=== PATIENT | female | born 1965 | race Caucasian/White ===

== ENCOUNTER → 2017-04-04 | Outpatient (CLI) | payer OTHER ==
[~2017-04-04] MED LIST: LORTAB 2.5/5001 TAB PO
--- NOTE | ~2017-04-04 | CT5 ---
[facility] A Service of [facility] & [facility] RADIOLOGY TEXT RESULTS PATIENT: DOMINGO KELLOGG LOCATION: [facility]AT : 65 UNIT #: [id number] AGE: [address]: Berta Scott MD SEX: F ORDER DR: [id number] [facility] [address] [place], [place] [address] [id number] O MR#: [id number] Acc #: [id number] NAME: DOMINGO KELLOGG : 1965 SEX: F STUDY DATE/TIME: 04/04/2017 12:49 UNIT: [facility]AT ROOM: STUDY DESCRIPTION: CT Abdomen W Cont Attending Physician: Berta Scott M.D., Ph.D. Referring Physician: Berta Scott M.D., Ph.D. Ordering Physician: Berta Scott M.D., Ph.D. Primary Care Physician: Osmin Ritchie M.D. MEDICAL IMAGING REPORT This report is preliminary unless electronic signature is present EXAM Abdomen CT with contrast, 04/04/2017 INDICATIONS 52-year-old female with history of lung cancer diagnosed in December of this year. Status post chemotherapy and radiation therapy. Hypertension. TECHNIQUE Contrast enhanced CT of the abdomen was performed and compared with 12/14/2016. This CT exam was performed with one or more of the following radiation dose reduction techniques: automatic exposure control, adjustment of mA and/or kV according to patient size, and iterative reconstruction. FINDINGS CT ABDOMEN: Please see separately dictated CT chest same date for further details regarding chest findings. There is no pleural effusion or evidence of pneumonia. Probable areas of linear atelectasis in the lower lobes, lingula and right middle lobe. Aorta demonstrates no aneurysm or dissection. Circumaortic left renal vein present. The spleen and right adrenal gland are unremarkable. There is redemonstration of nodular thickening of the medial limb left adrenal gland measuring up to 19 mm x 15 mm, previously 22 mm x 20 mm. The appearance is unchanged. The pancreas and gallbladder are unremarkable. There is a stable cyst in the left hepatic lobe. Adjacent tiny probable cyst in segment 2 of the liver, also unchanged but too small to definitively characterize. Probable vascular shunt in the right hepatic lobe, unchanged. Kidneys demonstrate incidental renal cysts and are otherwise unremarkable. No new adenopathy or fluid collection. The bowel is unremarkable. Visualized appendix unremarkable. No new suspicious bone lesion. Degenerative change in the lower lumbar spine. [facility]. [facility] A Service of [facility] RADIOLOGY TEXT RESULTS PATIENT: DOMINGO KELLOGG LOCATION: [facility] : 65 UNIT #: [id number] AGE: [address]: Berta Scott MD SEX: F ORDER DR: IMPRESSION 1. Nodularity of the left adrenal gland is unchanged. This may reflect adrenal hyperplasia or a lipid-poor adenoma. Metastatic disease remains within the differential but is felt to be less likely given relative stability. Attention on followup is recommended. 2. Incidental hepatic and renal cysts, unchanged. 3. No new suspicious bone lesion. Dictated by... Yohannes Martin M.D. THIS IS AN ELECTRONICALLY VERIFIED REPORT Yohannes Martin M.D. at 04/05/2017 9:13 AM UMER/storm TD: 04/04/2017 20:28 JOB #: [id number] MEDICAL IMAGING REPORT Page 1 of 1 COPY
--- NOTE | ~2017-04-04 | CT55 ---
[facility] A Service of [facility] & [facility] RADIOLOGY TEXT RESULTS PATIENT: DOMINGO KELLOGG LOCATION: [facility] : 65 UNIT #: [id number] AGE: [address]: Berta Scott MD SEX: F ORDER DR: [id number] [facility] [address] [place], [place] [address] [id number] O MR#: [id number] Acc #: [id number] NAME: DOMINGO KELLOGG : 1965 SEX: F STUDY DATE/TIME: 04/04/2017 12:49 UNIT: [facility]AT ROOM: STUDY DESCRIPTION: CT Chest W Con Attending Physician: Berta Scott M.D., Ph.D. Referring Physician: Berta Scott M.D., Ph.D. Ordering Physician: Berta Scott M.D., Ph.D. Primary Care Physician: Osmin Ritchie M.D. MEDICAL IMAGING REPORT This report is preliminary unless electronic signature is present EXAM CT chest. INDICATIONS Right lower lobe pulmonary malignancy. TECHNIQUE CT of the thorax with contrast (100 mL Isovue-370 IV contrast). Coronal and sagittal reconstructions were obtained. This CT exam was performed with one or more of the following radiation dose reduction techniques: automatic exposure control, adjustment of mA and/or kV according to patient size, and iterative reconstruction. COMPARISON Concurrent CT abdomen dated 04/04/2017, and PET/CT dated 12/26/2016. CT chest, 12/12/2016. FINDINGS The spiculated right upper lobe mass has decreased in size. The mass measures 2 x 1.5 x 1.2 cm, compared to 2.9 x 2.7 x 2.7 cm previously. There is background emphysema. No new pulmonary opacities. No pathologically enlarged hilar lymph nodes. A index right paratracheal lymph node measures 1.4 x 0.8 cm, compared to 2.3 x 2.0 cm. A right hilar lymph node measures 0.8 cm in short axis compared with 1.2 cm previously. Subcarinal lymph node previously measured 1.5 cm and now measures 0.9 cm in short axis. No pericardial or pleural effusion. The thoracic aorta is normal in caliber. There is low attenuation adreniform thickening of the left adrenal gland. This has a low internal density consistent with benign adenoma. There is STS. [facility] A Service of [facility] & [facility] RADIOLOGY TEXT RESULTS PATIENT: DOMINGO KELLOGG LOCATION: [facility] : 65 UNIT #: [id number] AGE: [address]: Berta Scott MD SEX: F ORDER DR: a benign cyst off the superior pole left kidney. No acute osseous abnormalities. IMPRESSION 1. Interval response to therapy. 2. Decreased size of the right upper lobe pulmonary nodule measuring 2.0 cm compared to 2.9 cm previously. 3. Decreased size of right hilar and mediastinal lymphadenopathy. Dictated by... Jose Horne M.D. THIS IS AN ELECTRONICALLY VERIFIED REPORT Jose Horne M.D. at 04/05/2017 8:39 AM MIRA/kit TD: 04/04/2017 18:58 JOB #: [id number] MEDICAL IMAGING REPORT Page 1 of 1 COPY
[2017-04-04 17:26] LABS: POC - CREATININE 0.71 mg/dL (0.44-1.03); POC - GFR >60.0 mL/min (>60)
== END | disposition home or self-care (01) ==
LOC: CCAT 11:00
PROVIDERS: Internal Medicine Hematology & Oncology
DX: C34.31 Malignant neoplasm of lower lobe, right bronchus or lung (principal); R59.1 Generalized enlarged lymph nodes; E27.8 Other specified disorders of adrenal gland
CPT/HCPCS: 71260; 74160; 82565; Q9967